=== PATIENT | female | born 1990 | race Two or more races ===

== ENCOUNTER 2023-12-16 18:35 | Emergency (ER) | payer OTHER ==
[~2023-12-16] VITALS: Ht 162.6 cm; Wt 89.8 kg
[2023-12-16 18:58] VITALS: PULSE 108; RESP 24; TEMP 98.1; O2SAT 98
--- NOTE | 2023-12-16 19:16 | DVH ---
RIGHT UPPER QUADRANT ABDOMINAL ULTRASOUND CLINICAL HISTORY: ruq pain COMPARISON: None TECHNIQUE: Grayscale and color Doppler ultrasound imaging of the right upper quadrant is performed. FINDINGS: Pancreas: Obscured by artifact from bowel gas. Liver: No discrete hepatic lesions as visualized. The portal vein appears patent. Gallbladder: No sizable, shadowing cholelithiasis. No sonographic conklin's sign reported. No gallblad george wall thickening. Common bile duct: Nondilated. Right Kidney: Measures 8.4 cm in length. No hydronephrosis. Right upper quadrant Inferior vena cava: Visualized portions appear patent. IMPRESSION: No acute findings as visualized.
[2023-12-16 19:39] LABS: Urine Bacteria None Seen /hpf (None Seen)
[2023-12-16 19:45] LABS: Basophils # (auto) 0 10 ^3/uL (0-0.2); Basophils % (auto) 0.4 % (0.0-2.0); Eosinophils # (auto) 0 10 ^3/uL (0-0.8); Eosinophils % (auto) 0.7 % (0.0-7.0); Hematocrit 38.5 % (36.0-46.0); Hemoglobin 12.9 g/dL (12.2-16.2); Lymphocytes # (auto) 1.8 10 ^3/uL (0.4-5.4); Mean Corpuscular Hemoglobin 28.8 pg (28.0-32.0); Mean Corpuscular Hgb Conc. 33.5 g/dL (32.0-36.0); Mean Corpuscular Volume 85.9 fL (80.0-100.0); Monocytes # (auto) 0.6 10 ^3/uL (0-1.3); Monocytes % (auto) 8.5 % (0.0-12.0); Neutrophils % (auto) 62.4 % (37.0-80.0); Platelet Count (auto) 203 10^3/uL (140-450); Red Blood Cells 4.48 10^6/uL (4.0-5.20); Red Cell Distribution Width 14.4 % (11.8-14.3); White Blood Cell 6.5 10^3/uL (4.4-10.8)
[2023-12-16 19:53] LABS: Alanine Aminotransferase 12 U/L (7-40); Albumin 4.1 g/dL (3.2-4.8); Alkaline Phosphatase 84 U/L (46-116); Anion Gap 7 (5-15); Aspartate Aminotransferase 16 U/L (13-40); BUN/Creatinine Ratio 9.5 (10.0-20.0); Blood Urea Nitrogen 6 mg/dL (9-23); Calcium 8.9 mg/dL (8.7-10.4); Carbon Dioxide 22 mmol/L (20-31); Chloride 109 mmol/L (98-107); Glucose 105 mg/dL (74-106); Lipase 31 U/L (12-53); Potassium 3.5 mmol/L (3.5-5.1); Sodium 138 mmol/L (136-145)
[2023-12-16 19:54] LABS: Bilirubin, Total 0.2 mg/dL (0.2-1.0); Total Protein 6.7 g/dL (5.7-8.2)
[2023-12-16 20:05] LABS: Urine Blood 1+ /uL (Negative); Urine Clarity Clear (Clear); Urine Color Light-Yellow (Yellow); Urine Mucus FEW (None Seen); Urine Protein, UAD Negative (Negative); Urine Specific Gravity 1.019 (1.001-1.035); Urine Urobilinogen Normal (Negative); Urine WBC 1 /hpf (0 - 5); Urine pH 5.5 (5.0-9.0)
--- NOTE | 2023-12-16 20:08 | ED.PDOC ---
History of Present Illness HPI Comments 33 y/o F, with a Hx of , in remission leukemia, seizures, obesity, and former EtOH use, presents with c/o RUQ abdominal and right-upper back pain, nausea, vomiting, diarrhea, and chills for 4 days. Patient endorses on unprovoked onset of gradually worsening symptoms for the past 4 days, with associated negative p/o intake. Patient comments on pain being a 10/10, "sharp and stabbing" in quality, and originating in her RUQ area prior to then "wrapping around" towards her back. Patient reports no recent stress, injuries, sick contact, spoiled food intake, substance use/exposure, or sexual activity but admits to recent travel, while visiting her mother from [place]town, currently. Patient informs on not being , currently, and her LMP on 11/13/2023. Patient denies having any constipation, hematemesis, blood in stools, urinary symptoms, fever, or other associated symptoms or modifiers at this time. Chief Complaint: Abdominal Pain Time Seen by MD: 18:40 Primary Care Provider: NONE Reviewed Notes: Nurses Notes, Medications, Allergies Allergies: Coded Allergies: Acetaminophen (Verified Allergy, Unknown, 12/16/23) Ibuprofen (Verified Allergy, Unknown, 12/16/23) Uncoded Allergies: TORODOL (Allergy, Unknown, 12/16/23) Information Source: Patient Mode of Arrival: Ambulatory Severity: Moderate Timing: Days Duration: Since onset Prehospital treatment: None Past Medical History PAST MEDICAL HISTORY: Cancer (leukemia, in remission ), Seizures Past Medical History (Other): obesity Surgical History: Denies all surgeries RAW JUICE WEIGHER History: Denies all RAW JUICE WEIGHER Hx LMP 11/13/2023 Family History Family History: Unknown Social History Smoker: Non-Smoker Alcohol: Denies ETOH Use, Sober Drugs: Denies Drug Use Lives In: Home Constitutional: reports: chills; denies: diaphoresis, fatigue, fever, malaise, sweats, weakness, others EENTM: denies: blurred vision, double vision, ear bleeding, ear discharge, ear drainage, ear pain, ear ringing, eye pain, eye redness, hearing loss, mouth pain, mouth swelling, nasal discharge, nose bleeding, nose congestion, nose pain, photophobia, tearing, throat pain, throat swelling, voice changes, others Respiratory: denies: cough, hemoptysis, orthopnea, SOB at rest, shortness of breath, SOB with excertion, stridor, wheezing, others Cardiovascular: denies: chest pain, dizzy spells, diaphoresis, Dyspnea on exe rtion, edema, irregular heart beat, left arm pain, lightheadedness, palpitations, PND, syncope, others Gastrointestinal: reports: abdominal pain (RUQ ), diarrhea, nausea, vomiting; denies: abdomen distended, blood streaked bowels, constipated, dysphagia, difficulty swallowing, hematemesis, melena, poor appetite, poor fluid intake, rectal bleeding, rectal pain, others Genitourinary: denies: abnormal vagina bleeding, burning, dyspareunia, dysuria, flank pain, frequency, hematuria, incontinence, pain, , vagina discharge, urgency, others Neurological: denies: dizziness, fainting, headache, left sided numbness, left sided weakness, numbness, paresthesia, pre-existing deficit, right sided numbness, right sided weakness, seizure, speech problems, tingling, tremors, weakness, others Musculoskeletal: reports: back pain; denies: gout, joint pain, joint swelling, muscle pain, muscle stiffness, neck pain, others Integumetry: denies: bruises, change in color, change in hair/nails, dryness, laceration, lesions, lumps, rash, wounds, others Allergic/Immunocompromised: denies: Difficulty Healing, Frequent Infections, Hives, Itching, others Hematologic/Lymphatic: denies: anemia, blood clots, easy bleeding, easy bruising, swollen glands, others Endocrine: denies: excessive hunger, excessive sweating, excessive thirst, excessive urination, flushing, intolerance to cold, intolerance to heat, unexplained weight gain, unexplained weight loss, others Psychiatric: denies: anxiety, bipolar disorder, depression, hopeless, panic disorder, schizophrenia, sleepless, suicidal, others All Other Systems: Reviewed and Negative Physical Exam General Appearance: No Apparent Distress, Obese HEENT: Normal ENT Inspection, Pharynx Normal, TMs Normal Neck: Full Range of Motion, Non-Tender, Normal, Normal Inspection Respiratory: Chest Non-Tender, Lungs Clear, No Accessory Muscle Use, No Respiratory Distress, Normal Breath Sounds Cardiovascular: No Edema, No JVD, No Murmur, No Gallop, Normal Peripheral Pulses, Regular Rate/Rhythm Breast Exam: Deferred Gastrointestinal: No Organomegaly, No Pulsatile Mass, Normal Bowel Sounds, RUQ (tenderness ), Soft, Tenderness (RUQ) Genitalia: Deferred Pelvic: Deferred Rectal: Deferred Extremities: No calf tenderness, Normal capillary refill, Normal inspection, Normal range of motion, Non-tender, No pedal edema Musculoskeletal : Apperance: Normal Neurologic: Alert, band manager II-XII nml as Tested, No Motor Deficits, Normal Affect, Normal Mood, No Sensory Deficits Cerebellar Function: Normal Reflexes: Normal Skin: Dry, Normal Color, Warm Lymphatic: No Adenopathy Was a procedure done? Was a procedure done?: No Differential Dx Considerations may include: Gastritis, gastroenteritis, GERD, PUD, cholecystitis, cholelithiasis, cystitis, nephrolithiasis, viral syndrome, spoiled food, , acute abdomen X-Ray, Labs, Meds, VS Vital Signs Date Time Temp Pulse Resp B/P (MAP) Pulse Ox O2 Delivery O2 Flow Rate FiO2 12/16/23 20:38 122 20 133/86 (102) 96 12/16/23 20:30 99 16 150/80 12/16/23 18:58 108 24 98 Room Air* 0 21 12/16/23 18:58 98.1 108 24 150/81 (104) 98 98.1 12/16/23 18:40 98.1 108 24 150/81 (104) 98 Lab Test 12/16/23 19:38 12/16/23 19:11 Range/Units Urine Color Light-yellow Yellow Urine Clarity Clear Clear Urine pH 5.5 5.0-9.0 Urine Specific [place] 1.019 1.001-1.035 Urine Protein Negative Negative Urine Ketones Negative Negative Urine Blood 1+ H Negative /uL Urine Nitrite Negative Negative Urine Bilirubin Negative Negative Urine Urobilinogen Normal Negative mg/dL Urine Leukocyte Esterase Negative Negative /uL Urine RBC 4 0 - 4 /hpf Urine WBC 1 0 - 5 /hpf Urine Squamous Epithelial Cells Few <5 /hpf Urine Bacteria None seen None Seen /hpf Urine Mucus Few None Seen Urine Glucose Normal Normal mg/dL Urine Test Negative Negative White Blood Count 6.5 4.4-10.8 10^3/uL Red Blood Count 4.48 4.0-5.20 10^6/uL Hemoglobin 12.9 12.2-16.2 g/dL Hematocrit 38.5 36.0-46.0 % Mean Corpuscular Volume 85.9 80.0-100.0 fL Mean Corpuscular Hemoglobin 28.8 28.0-32.0 pg Mean Corpuscular Hemoglobin Concent 33.5 32.0-36.0 g/dL Red Cell Distribution Width 14.4 H 11.8-14.3 % Platelet Count 203 140-450 10^3/uL Mean Platelet Volume 8.8 6.9-10.8 fL Neutrophils (%) (Auto) 62.4 37.0-80.0 % Lymphocytes (%) (Auto) 28.0 10.0-50.0 % Monocytes (%) (Auto) 8.5 0.0-12.0 % Eosinophils (%) (Auto) 0.7 0.0-7.0 % Basophils (%) (Auto) 0.4 0.0-2.0 % Neutrophils # (Auto) 4.0 1.6-8.6 10 ^3/uL Lymphocytes # (Auto) 1.8 0.4-5.4 10 ^3/uL Monocytes # (Auto) 0.6 0-1.3 10 ^3/uL Eosinophils # (Auto) 0 0-0.8 10 ^3/uL Basophils # (Auto) 0 0-0.2 10 ^3/uL Nucleated Red Blood Cells 0.0 % Sodium Level 138 136-145 mmol/L Potassium Level 3.5 3.5-5.1 mmol/L Chloride Level 109 H 98-107 mmol/L Carbon Dioxide Level 22 20-31 mmol/L Anion Gap 7 5-15 Blood Urea Nitrogen 6 L 9-23 mg/dL Creatinine 0.63 0.550-1.02 mg/dL Glomerular Filtration Rate Calc 121 >90 mL/min BUN/Creatinine Ratio 9.5 L 10.0-20.0 Serum Glucose 105 74-106 mg/dL Calcium Level 8.9 8.7-10.4 mg/dL Total Bilirubin 0.2 0.2-1.0 mg/dL Aspartate Amino Transferase (AST) 16 13-40 U/L Alanine Aminotransferase (ALT) 12 7-40 U/L Alkaline Phosphatase 84 46-116 U/L Total Protein 6.7 5.7-8.2 g/dL Albumin 4.1 3.2-4.8 g/dL Lipase 31 12-53 U/L Current Medications Medications (Trade) Dose Ordered Sig/Mary Carmen Route Start Time Stop Time Status Last Admin Sodium Chloride 1,000 ml @ 1,000 mls/hr Q1H ONCE IV 12/16/23 18:45 12/16/23 19:44 DC 12/16/23 20:22 Ondansetron HCl (Zofran) 4 mg ONCE ONCE IV 12/16/23 18:45 12/16/23 18:46 DC 12/16/23 20:35 Morphine Sulfate 4 mg ONCE ONCE IV 12/16/23 18:45 12/16/23 18:46 DC 12/16/23 20:30 Diphenhydramine HCl (Benadryl Injection) 25 mg ONCE ONCE IV 12/16/23 20:45 12/16/23 20:46 DC 12/16/23 20:40 [place] [address] Ph: [phone] DIAGNOSTIC IMAGING Diagnostic Imaging Report : [id number] Signed PATIENT: TERE DE LUNA ACCT: [id number] UNIT: [id number] : 1990 LOC: ER ROOM / BED: / AGE / SEX: 33 / F ADM STATUS: REG ER SERVICE 45 ORDERING PHYSICIAN: KATHY MARTINEZ MD PROCEDURE(s): GBUS - GALLBLADDER REASON: ruq pain ORDER NUMBER(s): [id number], ACCESSION NUMBER(s): [id number] RIGHT UPPER QUADRANT ABDOMINAL ULTRASOUND CLINICAL HISTORY: ruq pain COMPARISON: None TECHNIQUE: Grayscale and color Doppler ultrasound imaging of the right upper quadrant is performed. FINDINGS: Pancreas: Obscured by artifact from bowel gas. Liver: No discrete hepatic lesions as visualized. The portal vein appears paten t. Gallbladder: No sizable, shadowing cholelithiasis. No sonographic conklin's sign reported. No gallbladder wall thickening. Common bile duct: Nondilated. Right Kidney: Measures 8.4 cm in length. No hydronephrosis. Right upper quadrant Inferior vena cava: Visualized portions appear patent. IMPRESSION: No acute findings as visualized. ATED BY: RANDY NORTH MD DICTATED DATE/TIME: 12/16/231913 SIGNED BY: RANDY NORTH MD SIGNED DATE/TIME: 12/16/231913 CC: Time of 1ST Reevaluation: 19:10 Reevaluation 1ST: Unchanged Patient Education/Counseling: Diagnosis, Treatment Family Education/Counseling: No Family Present Departure 1 Departure Time of Disposition: 21:01 (Patient presented with abdominal pain that was concerning for possible appendicits, gastritis, cholecystitis, colitis, gastroenteritis, or orther possible surgical emergency. Data: 1. I ordered and reviewed the result of at least 3 labs including a CBC, BMP, and Urinalysis. 2. I independently interpreted the following tests: Ultrasound of the gallbladder is benign.Risk:This patient has a high risk of morbidity due to further diagnostic testing or treatment and may suffer from an acute abdominal process disorder. Fortunately workup reveals likely gastroenteritis and patient can be safely discharged to home with outpatient follow up.Patient is now pain free.) Impression: Primary Impression: Flank pain Additional Impression: Hematuria Qualified Codes: R31.29 - Other microscopic hematuria Disposition: 01 HOME / SELF CARE / HOMELESS Condition: Stable Additional Instructions: Your workup today was benign other than a drop of blood in your urine. You may have had a kidney stone that you passed. You should follow up with your regular doctor within 1 week. You should stay well rested and well hydrated. If your symptoms worsen or you have any other concerns please return to the emergency room. Critical Care Note Critical Care Time?: Yes Critical care comment: Severe abdominal pain Authorized and Performed by: Kathy Martinez MD Total critical care time: Approximately 33 minutes Due to a high probability of clinically significant, life threatening deterioration, the patient required my highest level of preparedness to intervene emergently and I personally spent this critical care time directly and personally managing the patient. This critical care time included obtaining a history; examining the patient; pulse oximetry; ordering and review of studies; arranging urgent treatment with development of a management plan; evaluation of patient's response to treatment; frequent reassessment; and, discussions with other providers. This critical care time was performed to assess and manage the high probability of imminent, life-threatening deterioration that could result in multi-organ failure. It was exclusive of separately billable procedures and treating other patients and teaching time. Please see my other sections and the rest of the note for further information on patient assessment and treatment. Stability Stability form required: No Heart Score Heart Score: Heart Score Response (Comments) Value History N/A 0 EKG N/A 0 Age N/A 0 Risk Factors N/A 0 Troponin N/A 0 Total 0 I personally scribed for KATHY MARTINEZ MD ([email or web address]) on 12/16/23 at 20:08. Electronically submitted by Alexey Cotter ([email or web address]). KATHY MARTINEZ MD Dec 16, 2023 20:08
[2023-12-16] MEDS: SODIUM CHLORIDE 0.9% 1,000 ML IV ONE (20:22)
[2023-12-16] MEDS: MORPHINE SULFATE 4 MG/ML SYR/VIAL IV ONE (20:30)
[2023-12-16] MEDS: diphenhdrAMINE HCL 50 MG/1 ML VL ONE (20:35)
[2023-12-16] MEDS: ONDANSETRON HCL 4 MG/2 ML VIAL IV ONE (20:35)
[2023-12-16 20:38] VITALS: BP 133/86; PULSE 122; RESP 20; O2SAT 96
[2023-12-16] MEDS: diphenhdrAMINE HCL 50 MG/1 ML VL IV ONE (20:40)
== END 2023-12-16 21:17 | disposition home or self-care (01) ==
LOC: ER 18:43
DX: R10.9 Unspecified abdominal pain (principal); R31.9 Hematuria, unspecified; E66.9 Obesity, unspecified; Z68.34 Body mass index [BMI] 34.0-34.9, adult; Z85.9 Personal history of malignant neoplasm, unspecified; Z88.6 Allergy status to analgesic agent
CPT/HCPCS: 36415; 76705; 80053; 81001; 81025; 83690; 85025; 96361; 96374; 96375; 99285; J1200; J2270; J2405; J7030

== ENCOUNTER 2024-06-01 19:55 | Inpatient (IN) | payer OTHER, MEDICAID ==
[~2024-06-01] VITALS: Ht 162.6 cm; Wt 93.1 kg
--- NOTE | 2024-06-01 20:19 | ED.PDOC ---
GI ASSESSMENT HPI Comments 33-year-old female who comes in with chief complaint of the right upper quadrant pain. The patient states that the symptoms started two days ago. The pain is associated with a significant amount of vomiting that increases with eating. The patient has a history of seizures and states that she has not been able of her medications over the past couple of days either. She typically takes Keppra 500 mg p.o. b.i.d.. At that time she states that the pain is a 10/10 and also radiates towards the back. She denies any history of this in the past. Chief Complaint: Abdominal Pain Time Seen by MD: 20:00 Primary Care Provider: NONE Reviewed Notes: Nurses Notes, Medications, Allergies (See list) Allergies: Coded Allergies: Acetaminophen (Verified Allergy, Unknown, 12/16/23) Ibuprofen (Verified Allergy, Unknown, 12/16/23) Uncoded Allergies: TORODOL (Allergy, Unknown, 12/16/23) Information Source: Patient Mode of Arrival: Ambulatory Timing: Days Duration: Since onset Prehospital treatment: None Quality: Burning Vomitus: Bilious Stool: Normal Severity: Moderate Recent: None Recent Hx of: None Pain Location: RUQ Modifying Factors: Nothing Associated sign and symptoms: Nausea, Vomiting, Abdominal Pain Past Medical History PAST MEDICAL HISTORY: Cancer (Leukemia), Seizures Surgical History: Denies all surgeries IT APPLICATIONS ANALYST History: Denies all IT APPLICATIONS ANALYST Hx Family History Family History: Unknown Social History Smoker: Non-Smoker Alcohol: Denies ETOH Use, Sober Drugs: Denies Drug Use Lives In: Home Constitutional: denies: chills, diaphoresis, fatigue, fever, malaise, sweats, weakness, others EENTM: denies: blurred vision, double vision, ear bleeding, ear discharge, ear drainage, ear pain, ear ringing, eye pain, eye redness, hearing loss, mouth pain, mouth swelling, nasal discharge, nose bleeding, nose congestion, nose pain, photophobia, tearing, throat pain, throat swelling, voice changes, others Respiratory: denies: cough, hemoptysis, orthopnea, SOB at rest, shortness of breath, SOB with excertion, stridor, wheezing, others Cardiovascular: denies: chest pain, dizzy spells, diaphoresis, Dyspnea on exertion, edema, irregular heart beat, left arm pain, lightheadedness, palpitations, PND, syncope, others Gastrointestinal: reports: abdominal pain, diarrhea, nausea, vomiting; denies: abdomen distended, blood streaked bowels, constipated, dysphagia, difficulty swallowing, hematemesis, melena, poor appetite, poor fluid intake, rectal bleeding, rectal pain, others Genitourinary: denies: abnormal vagina bleeding, burning, dyspareunia, dysuria, flank pain, frequency, hematuria, incontinence, pain, , vagina discharge, urgency, others Neurological: denies: dizziness, fainting, headache, left sided numbness, left sided weakness, numbness, paresthesia, pre-existing deficit, right sided numbness, right sided weakness, seizure, speech problems, tingling, tremors, weakness, others Musculoskeletal: denies: back pain, gout, joint pain, joint swelling, muscle pain, muscle stiffness, neck pain, others Integumetry: denies: bruises, change in color, change in hair/nails, dryness, laceration, lesions, lumps, rash, wounds, others Allergic/Immunocompromised: denies: Difficulty Healing, Frequent Infections, Hives, Itching, others Hematologic/Lymphatic: denies: anemia, blood clots, easy bleeding, easy bruisi ng, swollen glands, others Endocrine: denies: excessive hunger, excessive sweating, excessive thirst, exce ssive urination, flushing, intolerance to cold, intolerance to heat, unexplained weight gain, unexplained weight loss, others Psychiatric: denies: anxiety, bipolar disorder, depression, hopeless, panic disorder, schizophrenia, sleepless, suicidal, others Physical Exam General Appearance: Moderate Distress HEENT: Normal ENT Inspection, Pharynx Normal, TMs Normal Neck: Full Range of Motion, Non-Tender, Normal, Normal Inspection Respiratory: Chest Non-Tender, Lungs Clear, No Accessory Muscle Use, No Respiratory Distress, Normal Breath Sounds Cardiovascular: No Edema, No JVD, No Murmur, No Gallop, Normal Peripheral Pulse s, Regular Rate/Rhythm Breast Exam: Deferred Gastrointestinal: Epigastric, No Organomegaly, No Pulsatile Mass, Normal Bowel Sounds, Soft, Tenderness Genitalia: Deferred Pelvic: Deferred Rectal: Deferred Extremities: No calf tenderness, Normal capillary refill, Normal inspection, Normal range of motion, Non-tender, No pedal edema Musculoskeletal : Apperance: Normal Neurologic: Alert, 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 Was a procedure done?: No GI differential Dx Differential Diagnosis: Appendicitis, Cholangitis, Cholecystitis, Gastritis/PUD, Gastroenteritis, Inflammatory BD, Ischemic Bowel X-Ray, Labs, Meds, VS Vital Signs Date Time Temp Pulse Resp B/P (MAP) Pulse Ox O2 Delivery O2 Flow Rate FiO2 06/01/24 21:34 79 19 108/87 06/01/24 21:26 98.6 98 18 108/64 (79) 98 98.6 06/01/24 20:09 97.9 85 18 106/80 (89) 98 97.9 Lab Test 06/01/24 20:30 Range/Units White Blood Count 7.3 4.4-10.8 10^3/uL Red Blood Count 4.81 4.0-5.20 10^6/uL Hemoglobin 13.5 12.2-16.2 g/dL Hematocrit 39.9 36.0-46.0 % Mean Corpuscular Volume 83.1 80.0-100.0 fL Mean Corpuscular Hemoglobin 28.0 28.0-32.0 pg Mean Corpuscular Hemoglobin Concent 33.8 32.0-36.0 g/dL Red Cell Distribution Width 14.2 11.8-14.3 % Platelet Count 221 140-450 10^3/uL Mean Platelet Volume 8.4 6.9-10.8 fL Neutrophils (%) (Auto) 64.2 37.0-80.0 % Lymphocytes (%) (Auto) 26.7 10.0-50.0 % Monocytes (%) (Auto) 7.9 0.0-12.0 % Eosinophils (%) (Auto) 0.9 0.0-7.0 % Basophils (%) (Auto) 0.3 0.0-2.0 % Neutrophils # (Auto) 4.7 1.6-8.6 10 ^3/uL Lymphocytes # (Auto) 2.0 0.4-5.4 10 ^3/uL Monocytes # (Auto) 0.6 0-1.3 10 ^3/uL Eosinophils # (Auto) 0.1 0-0.8 10 ^3/uL Basophils # (Auto) 0 0-0.2 10 ^3/uL Nucleated Red Blood Cells 0.1 % Sodium Level 138 136-145 mmol/L Potassium Level 3.8 3.5-5.1 mmol/L Chloride Level 106 98-107 mmol/L Carbon Dioxide Level 24 20-31 mmol/L Anion Gap 8 5-15 Blood Urea Nitrogen 6 L 9-23 mg/dL Creatinine 0.67 0.550-1.02 mg/dL Glomerular Filtration Rate Calc 119 >90 mL/min BUN/Creatinine Ratio 9.0 L 10.0-20.0 Serum Glucose 87 74-106 mg/dL Calcium Level 9.5 8.7-10.4 mg/dL Total Bilirubin 0.2 0.2-1.0 mg/dL Aspartate Amino Transferase (AST) 12 L 13-40 U/L Alanine Aminotransferase (ALT) < 9 7-40 U/L Alkaline Phosphatase 97 46-116 U/L Total Protein 7.3 5.7-8.2 g/dL Albumin 4.3 3.2-4.8 g/dL Lipase 33 12-53 U/L Current Medications Medications (Trade) Dose Ordered Sig/Mary Carmen Route Start Time Stop Time Status Last Admin Sodium Chloride 1,000 ml @ 1,000 mls/hr Q1H ONCE IVB 06/01/24 20:15 06/01/24 21:14 DC 06/01/24 21:35 Morphine Sulfate 4 mg ONCE ONCE IV 06/01/24 20:15 06/01/24 20:16 DC 06/01/24 21:34 Pantoprazole Sodium (Protonix) 40 mg ONCE ONCE IV 06/01/24 20:15 06/01/24 20:16 DC 06/01/24 21:35 Prochlorperazine Edisylate (Compazine Inj) 10 mg ONCE ONCE IV 06/01/24 20:15 06/01/24 20:16 DC 06/01/24 21:35 Levetiracetam 100 ml @ 400 mls/hr ONCE ONCE IV 06/01/24 20:15 06/01/24 20:29 DC 06/01/24 21:35 IV Hep-Lock was established The patient was given 1 L bolus of normal saline The patient was given morphine 4 mg IV push for the pain The patient was given Protonix 40 mg IV push The patient was given Compazine 10 mg IV push for the vomiting For the seizures, the patient was given Keppra to prevent any other seizures from happening. The patient's CBC and chemistry panel is within normal limits At this time, we are awaiting Hope's call back We feel that the patient is to be admitted to the hospital but is stable for transfer. The patient will be signed out to Dr. Lofton Images Reviewed?: Images reviewed and evaluated by me Time of 1ST Reevaluation: 21:42 Reevaluation 1ST: Unchanged Patient Education/Counseling: Diagnosis, Treatment, Prognosis Family Education/Counseling: No Family Present Departure 1 Departure Time of Disposition: 21:42 Impression: Primary Impression: Intractable abdominal pain Disposition: 51 HOSPICE/MEDICAL FACILITY Condition: Fair Critical Care Note Critical Care Time?: No Stability Stability form required: Yes Unstable for transfer: ED Physician Assesment (Clinical assesment) Heart Score Heart Score: Heart Score Response (Comments) Value History N/A 0 EKG N/A 0 Age N/A 0 Risk Factors N/A 0 Troponin N/A 0 Total 0 ALMAZ ALARCON MD Jun 01, 2024 20:19
[2024-06-01 20:47] LABS: Basophils # (auto) 0 10 ^3/uL (0-0.2); Basophils % (auto) 0.3 % (0.0-2.0); Eosinophils # (auto) 0.1 10 ^3/uL (0-0.8); Eosinophils % (auto) 0.9 % (0.0-7.0); Hematocrit 39.9 % (36.0-46.0); Hemoglobin 13.5 g/dL (12.2-16.2); Lymphocytes % (auto) 26.7 % (10.0-50.0); Mean Corpuscular Hgb Conc. 33.8 g/dL (32.0-36.0); Mean Corpuscular Volume 83.1 fL (80.0-100.0); Monocytes # (auto) 0.6 10 ^3/uL (0-1.3); Monocytes % (auto) 7.9 % (0.0-12.0); Neutrophils # (auto) 4.7 10 ^3/uL (1.6-8.6); Neutrophils % (auto) 64.2 % (37.0-80.0); Nucleated Red Blood Cells % 0.1 %; Platelet Count (auto) 221 10^3/uL (140-450); Red Blood Cells 4.81 10^6/uL (4.0-5.20); Red Cell Distribution Width 14.2 % (11.8-14.3); White Blood Cell 7.3 10^3/uL (4.4-10.8)
[2024-06-01 21:08] LABS: Albumin 4.3 g/dL (3.2-4.8); Alkaline Phosphatase 97 U/L (46-116); Anion Gap 8 (5-15); Calcium 9.5 mg/dL (8.7-10.4); Carbon Dioxide 24 mmol/L (20-31); Chloride 106 mmol/L (98-107); Glucose 87 mg/dL (74-106); Lipase 33 U/L (12-53); Potassium 3.8 mmol/L (3.5-5.1); Sodium 138 mmol/L (136-145); Total Protein 7.3 g/dL (5.7-8.2)
[2024-06-01 21:20] LABS: Alanine Aminotransferase < 9 U/L (7-40); Aspartate Aminotransferase 12 U/L (13-40); Bilirubin, Total 0.2 mg/dL (0.2-1.0); Blood Urea Nitrogen 6 mg/dL (9-23)
--- NOTE | 2024-06-01 21:21 | DVH ---
INDICATION: pain TECHNIQUE: Multiple real-time sonographic images were obtained of the right upper quadrant. COMPARISON: US GALLBLADDER on DOS: 12/16/23 FINDINGS: The liver demonstrates homogeneous echotexture without focal mass lesions. The liver measu res 12.7 cm. There is no intrahepatic or extrahepatic ductal dilatation. The common duct measures 0.3 cm. The gallbladder is without evidence of stone or sludge. The gallbladder wall measures 0.2 cm and is within normal limits. The right kidney measures 10 cm. The right kidney is normal in contour, size, and shape. The echoge nicity is normal. There is no hydronephrosis. The pancreas is not well visualized due to overlying bowel gas. IMPRESSION: 1. Unremarkable right upper quadrant sonogram.
[2024-06-01] MEDS: MORPHINE SULFATE 4 MG/ML SYR/VIAL IV ONE (21:34)
[2024-06-01] MEDS: levETIRAcetam 1000 mg/100ml 100 ML IV ONE (21:35)
[2024-06-01] MEDS: SODIUM CHLORIDE 0.9% 1,000 ML IVB ONE (21:35)
[2024-06-01] MEDS: PROCHLORPERAZINE EDISYLATE 5 MG/ML 2ML VIAL IV ONE (21:35)
[2024-06-01] MEDS: PANTOPRAZOLE 40 MG/10 ML VIAL INJ IV ONE (21:35)
[2024-06-01] MEDS: diphenhdrAMINE HCL 50 MG/1 ML VL IV ONE (21:47)
[2024-06-01 22:07] VITALS: PULSE 108; RESP 17; O2SAT 98
[2024-06-01] MEDS: LORazepam 2MG/ML-1ML VIAL ONE (22:10)
[2024-06-01] MEDS: LORazepam 2MG/ML-1ML VIAL IV ONE (22:10)
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
[2024-06-01] MEDS ORDERED: LORazepam 0.5 MG TAB PO PRN (23:15)
[2024-06-01] MEDS ORDERED: ACETAMINOPHEN 325 MG TAB PO PRN (23:15)
[2024-06-01 23:49] LABS: INR 0.99 (0.9-1.15); Partial Thromboplastin Time 24.5 SEC (24.5-34.5); Prothrombin Time 10.5 sec (9.3-11.8)
[2024-06-02 00:03] LABS: Magnesium 1.8 mg/dL (1.6-2.6)
[2024-06-02 00:04] LABS: Phosphorus 2.8 mg/dL (2.4-5.1)
[2024-06-02] MEDS: ERGOCALCIFEROL 50,000 UNIT(1.25MG) CAP PO SCH (01:31)
[2024-06-02] MEDS: MORPHINE SULFATE INJ 2 MG/ml SYRG IV PRN (01:31)
[2024-06-02] MEDS: QUEtiapine FUMARATE 100 MG TAB PO ONE (02:13)
[2024-06-02] MEDS: SODIUM CHLORIDE 0.9% 1,000 ML IV ONE (02:13)
[2024-06-02] MEDS: HYDROMORPHONE HCL 1 MG/ML INJ IV ONE (02:13)
[2024-06-02] MEDS: diphenhdrAMINE HCL 50 MG/1 ML VL IV ONE (02:13)
[2024-06-02] MEDS: SODIUM CHLORIDE 0.9% 1,000 ML IV SCH (02:49)
[2024-06-02] MEDS: cefTRIAXone 1GM/50ML D5W 50 ML IV ONE (05:03)
[2024-06-02] MEDS: metroNIDAZOLE 500MG/100ML 100 ML IV ONE (05:04)
[2024-06-02] MEDS: metroNIDAZOLE 500MG/100ML 100 ML IV SCH (05:04)
[2024-06-02 06:10] LABS: Basophils # (auto) 0 10 ^3/uL (0-0.2); Basophils % (auto) 0.3 % (0.0-2.0); Eosinophils # (auto) 0.1 10 ^3/uL (0-0.8); Hematocrit 35.8 % (36.0-46.0); Hemoglobin 12.1 g/dL (12.2-16.2); Lymphocytes % (auto) 36.7 % (10.0-50.0); Mean Corpuscular Hemoglobin 28.1 pg (28.0-32.0); Mean Corpuscular Hgb Conc. 33.7 g/dL (32.0-36.0); Mean Corpuscular Volume 83.1 fL (80.0-100.0); Monocytes # (auto) 0.4 10 ^3/uL (0-1.3); Monocytes % (auto) 7.8 % (0.0-12.0); Neutrophils # (auto) 2.9 10 ^3/uL (1.6-8.6); Neutrophils % (auto) 54.2 % (37.0-80.0); Nucleated Red Blood Cells % 0.4 %; Platelet Count (auto) 185 10^3/uL (140-450); Red Blood Cells 4.31 10^6/uL (4.0-5.20); Red Cell Distribution Width 14.1 % (11.8-14.3); White Blood Cell 5.4 10^3/uL (4.4-10.8)
[2024-06-02 06:20] LABS: Anion Gap 8 (5-15); Carbon Dioxide 23 mmol/L (20-31); Sodium 140 mmol/L (136-145)
[2024-06-02 06:26] LABS: BUN/Creatinine Ratio 10.9 (10.0-20.0)
[2024-06-02 06:27] LABS: Blood Urea Nitrogen 6 mg/dL (9-23); Calcium 8.2 mg/dL (8.7-10.4); Chloride 109 mmol/L (98-107); Glucose 106 mg/dL (74-106); Potassium 3.4 mmol/L (3.5-5.1)
[2024-06-02 06:29] LABS: T3 Total 1.16 ng/mL (0.60-1.81)
[2024-06-02 06:30] LABS: Free T4 (Free Thyroxine) 1.14 ng/dL (0.89-1.76)
[2024-06-02] MEDS: ONDANSETRON HCL 4 MG/2 ML VIAL IV PRN (08:23)
--- NOTE | 2024-06-02 08:29 | DVH ---
Exam: CT CT AB PEL WO CON-NO ORAL OR IV History: Abdominal apin Comparison Study: None Technique: Multidetector spiral CT of the abdomen was performed from lung bases to pubic symphysis. I maging was performed without IV contrast. Axial, coronal and sagittal multiplanar reformats were obta ined from the axial data set by the technologist. Radiation Dose : 1. Abdomen/Pelvis: CTDIvol 17.63 mGy, DLP 1016.34 mGy*cm. Findings: Evaluation of solid organs is limited due to lack of intravenous contrast use. Lung Bases: No acute or significant lung base finding. Normal heart size. No pleural or pericardial effusion. Liver: The liver is normal in size. No focal lesions. Gallbladder and Biliary Tree: Unremarkable Spleen: Unremarkable Pancreas: The pancreas is grossly normal in appearance. Adrenal Glands: Unremarkable Kidneys: Kidneys are grossly normal without calculi or hydronephrosis. Bladder: Grossly unremarkable for degree of distention. Bowel: The stomach is grossly normal in appearance. Moderate bowel wall thickening of the terminal il eum. Moderate colonic stool. The appendix is not visualized; however, no secondary findings of acute appendicitis identified. Ascites: Absent Lymphadenopathy: No mesenteric, retroperitoneal or periportal lymphadenopathy. Abdominal Wall and Mesentery: Unremarkable. Vasculature: The visualized abdominal aorta is normal in size and caliber. Evaluation of abdominal a nd pelvic vessels is limited due to lack of intravenous contrast. Pelvic Organs: Left adnexal cyst measures 2.1 cm. Musculoskeletal: No aggressive focal bony lesions, acute fractures or dislocation. IMPRESSION: Moderate bowel wall thickening of the terminal ileum. This may represent infectious or inflammatory b owel disease.
[2024-06-02] MEDS: cefTRIAXone 1GM/50ML D5W 50 ML IV SCH (09:23)
[2024-06-02] MEDS: SERTRALINE HCL 50 MG TAB PO SCH (10:23)
[2024-06-02] MEDS: levETIRAcetam 500 MG TAB PO SCH (10:23)
[2024-06-02] MEDS: ENOXAPARIN SOD 40 MG/0.4 ML SYRINGE SC SCH (10:23)
[2024-06-02 12:00] LABS: Urine Bacteria FEW /hpf (None Seen); Urine Blood Negative /uL (Negative); Urine Clarity Turbid (Clear); Urine Color Colorless (Yellow); Urine Mucus FEW (None Seen); Urine Protein, UAD Negative (Negative); Urine Squamous Epithelial Cell MOD /hpf (<5); Urine Urobilinogen Normal (Negative); Urine WBC 3 /HPF (0-5)
[2024-06-02 12:06] LABS: Opiate Scree,Urine Pos (NEGATIVE)
[2024-06-02 12:07] LABS: Amphetamine Screen, Urine Neg (NEGATIVE); Barbiturate Scree,Urine Neg (NEGATIVE); Benzodiazephine Screen, Urine Neg (NEGATIVE); Cannabinoid Screen, Urine Neg (NEGATIVE); Cocaine Screen, Urine Neg (NEGATIVE); Phencyclidine Screen, Urine Neg (NEGATIVE)
--- NOTE | 2024-06-02 12:25 | DVHPN2 ---
Progress Note Date Seen: Jun 02, 2024 Medical Necessity Reason Pt with a Central, PICC or Fol: No Subjective Patient reports: No new complaints Review of Systems: HEENT:Normal, CVS:Normal, RESPIRATORY:Normal, GI:Normal, :Normal, MSK:Normal, NEURO:Normal Objective vital signs Vital Sign Date Time Temp Pulse Resp B/P (MAP) Pulse Ox O2 Delivery O2 Flow Rate FiO2 06/02/24 12:18 91 15 120/58 06/02/24 10:31 98 06/02/24 08:00 Room Air* 0 21 06/02/24 08:00 97.7 97.7 Total Intake and Output 06/01/24 06/01/24 06/02/24 15:00 23:00 07:00 Intake Total 400 ml Balance 400 ml medications Current Medications Medications Dose Ordered Sig/Mary Carmen Route Start Time Stop Time Status Last Admin Dose Admin Lorazepam 0.5 mg Q6HP PRN PO 06/01/24 23:15 Ondansetron HCl 4 mg Q4HP PRN IV 06/01/24 23:15 06/02/24 08:23 4 MG Morphine Sulfate 2 mg Q4HPRN PRN IV 06/01/24 23:15 06/02/24 12:18 2 MG Enoxaparin Sodium 40 mg DAILY SC 06/02/24 10:00 06/02/24 10:23 40 MG Ergocalciferol 50,000 unit Q7D PO 06/02/24 00:45 06/02/24 01:31 50,000 UNIT Quetiapine Fumarate 100 mg HS PO 06/02/24 22:00 Sertraline HCl 50 mg DAILY PO 06/02/24 10:00 06/02/24 10:23 50 MG Levetiracetam 500 mg BID PO 06/02/24 10:00 06/02/24 10:23 500 MG Diphenhydramine HCl 25 mg Q4HP PRN IV 06/02/24 02:00 Sodium Chloride 1,000 ml @ 100 mls/hr Q10H IV 06/02/24 02:00 06/02/24 12:05 100 MLS/HR Metronidazole 100 ml @ 100 mls/hr Q8HR IV 06/02/24 06:00 Ceftriaxone Sodium 50 ml @ 100 mls/hr DAILY@09 IV 06/02/24 09:00 06/02/24 09:23 100 MLS/HR Examination: GENERAL:Normal, HEENT:Normal, NECK:Normal, LUNGS:Normal, CVS:Normal, ABDOMEN:Normal, MSK:Normal, SKIN:Normal, NEURO:Normal, :Normal laboratory and microbiology Laboratory Tests 06/02/24 05:30 Test 06/02/24 05:30 Range/Units Serum Glucose 106 74-106 mg/dL Problem List/Assessment/Plan Problem List/Assessment/Plan #1 breakthrough seizure: cont meds, neuro eval #2 abd pain ? acute gastro: ppi, advance diet #3 obesity #4 anxiety #5 h/o leukemia Plan discussed with: Patient My Orders My Orders Orders - JAMES AMEZCUA MD Procedure Category Date Status Time Regular Diet DIET 06/02/24 Transmitted Lunch * Neurology Consult CONS 06/02/24 Transmitted 12:21 Pantoprazole PHA 06/02/24 Transmitted (Protonix) 12:30 Pantoprazole PHA 06/03/24 Transmitted (Protonix) 10:00 Potassium Er Tablet PHA 06/02/24 Transmitted (Klor-Con Tablet) 12:30 Basic Metabolic Panel LAB 06/03/24 Verified 06:00 Date of Service: Jun 02, 2024 Billing Provider: JAMES AMEZCUA MD Common Visit Codes: [id number] INP/OBS CARE(HIGH) JAMES AMEZCUA MD Jun 02, 2024 12:25
[2024-06-02] MEDS: diphenhdrAMINE HCL 50 MG/1 ML VL IV PRN (12:43)
--- NOTE | 2024-06-02 16:06 | DVHSR ---
APPROVED REPORT EXAM: Two-dimensional and M-mode echocardiogram with Doppler and color Doppler. Blood Pressure: 96/52 mmHg INDICATION Dyspnea seizures RISK FACTORS Obesity: Height: 5'3, Weight: 205 DIMENSIONS LVDd4.6 (3.8-5.7cm)LA (2D)3.5 (1.9-4.0cm)Aortic Root3.1 (2.0-3.7cm) LVDs3.3 (2.5-4.0cm)LA (MM) (1.9-4.0cm)Aortic Cusp Exc1.8 (1.5-2.0cm) EF (%) 55.0 (55-70%)Rt. Atrium2.8 (1.9-4.0cm)Asc. Aorta2.4 cm IVSd0.7 (0.7-1.1cm)RV (D) (1.8-2.4cm) PWd0.8 (0.7-1.1cm) Mitral Valve MitralMitral Stenosis E wave0.81m/sMV Mean GR.mmHg A wave0.53m/sMV Peak GR.46mmHg E/A ratio1.52D MVAcm2 DECEL [id number] 1/2 Timems Aortic Valve Aortic ValveAortic Stenosis V10.79m/Windy Mean GR.2mmHg V20.95m/Windy Peak GR.4mmHg LVOT Diameter2.0 (1.8-2.4cm)Doppler AVA2.61cm2 Pulmonic Valve V20.70m/s Tricuspid Valve TR Velocity2.10m/s [id number] Conclusion LVEF 50-55%, normal function rv function normal valves grossly normal
[2024-06-02] MEDS: PANTOPRAZOLE 40 MG/10 ML VIAL INJ IV ONE (16:57)
[2024-06-02 17:00] VITALS: BP 108/52; PULSE 90; RESP 19; TEMP 97.5; O2SAT 97
[2024-06-02] MEDS: POTASSIUM CHL 20 Meq TABLET PO ONE (17:07)
[2024-06-02 17:29] VITALS: BP 122/80; PULSE 90; RESP 20
[2024-06-02] MEDS ORDERED: QUEtiapine FUMARATE 100 MG TAB PO SCH (22:00)
--- NOTE | 2024-06-03 09:54 | DVHDS ---
DATE OF DISCHARGE: 06/02/2024 HISTORY OF PRESENT ILLNESS: The patient is a 33-year-old lady who was admitted with history of breakthrough seizure and has history of seizure disorder, PTSD, previous leukemia. She also complained of abdominal pain. HOSPITAL COURSE: The patient had a CT of abdomen and pelvis that showed moderate bowel wall thickening of the terminal ileum. The patient had a gallbladder ultrasound that was unremarkable. The patient had an echocardiogram done that showed ejection fraction of 50%-55%. The patient was to see Neurology. The patient left against medical advice on 06/02/2024. FINAL DIAGNOSES: * Breakthrough seizures. * Abdominal pain, questionable acute gastroenteritis. * Obesity. * Anxiety. * History of leukemia. * Noncompliance. MD CHRIS Pyle/ALLY TID: [id number] RECEIPT: [id number]
[2024-06-03] MEDS ORDERED: PANTOPRAZOLE 40 MG/10 ML VIAL INJ IV SCH (10:00)
== END 2024-06-02 18:04 | disposition left against medical advice (07) | DRG 101 ==
LOC: ER 19:55 → OVERFLOW 23:02 → TELE-EAST 06-02 16:30
PROVIDERS: ADMIT Internal Medicine; ATTEND Internal Medicine
DX: G40.909 Epilepsy, unspecified, not intractable, without status epilepticus (principal); E66.9 Obesity, unspecified; Z68.35 Body mass index [BMI] 35.0-35.9, adult; K52.9 Noninfective gastroenteritis and colitis, unspecified; F41.9 Anxiety disorder, unspecified; F43.10 Post-traumatic stress disorder, unspecified; E55.9 Vitamin D deficiency, unspecified; Z53.29 Procedure and treatment not carried out because of patient's decision for other reasons; Z92.3 Personal history of irradiation; Z92.21 Personal history of antineoplastic chemotherapy; Z91.199 Patient's noncompliance with other medical treatment and regimen due to unspecified reason; Z85.6 Personal history of leukemia; Z88.8 Allergy status to other drugs, medicaments and biological substances
CPT/HCPCS: 36415; 74176; 76705; 80048; 80053; 80061; 80307; 81001; 81025; 82306; 82550; 82607; 83036; 83605; 83690; 83735; 84100; 84439; 84443; 84480; 84702; 85025; 85610; 85730; 93306; 96365; 96375; G0378; J2405; J2470; J3490

== ENCOUNTER 2024-07-24 22:14 | Emergency (ER) | payer OTHER, MEDICAID ==
[~2024-07-24] VITALS: Ht 162.6 cm; Wt 93.0 kg
[2024-07-24 23:00] VITALS: TEMP 97.9
--- NOTE | 2024-07-24 23:16 | ED.PDOC ---
GI ASSESSMENT HPI Comments 33-year-old female who came to ER for abdominal pain. Patient states for the past 3 days, she has been having intermittent episodes of right upper quadrant abdominal pain/epigastric pain, associated with bouts of nausea, vomiting, and loose nonbloody diarrhea. States she could not keep anything in. Noted also to have dysuria and burning in urination. Patient does have history of seizures, states she is unable to keep her seizure medications in due to the vomiting. This morning, patient had a witnessed seizure episode lasting a few minutes. Last seizure episode was over 2 years ago Chief Complaint: Abdominal pain Time Seen by MD: 23:15 Primary Care Provider: PATRICIA Reviewed Notes: Nurses Notes Allergies: Coded Allergies: Acetaminophen (Verified Allergy, Unknown, 12/16/23) Ibuprofen (Verified Allergy, Unknown, 12/16/23) Uncoded Allergies: TORODOL (Allergy, Unknown, 12/16/23) Home Meds Active Scripts Famotidine (PEPCID TABLET) 20 Mg Tb, 1 TAB PO BID PRN, #60 TAB 5 Refills Prov:JEREMY PORTILLO MD 07/25/24 Ondansetron HCl (Ondansetron Hydrochloride) 8 Mg Tab, 8 MG PO Q6HP PRN, #30 TAB Prov:JEREMY PORTILLO MD 07/25/24 Information Source: Patient Mode of Arrival: Ambulatory Timing: Days Duration: Intermittent Prehospital treatment: None Quality: Cramping Vomitus: Watery Stool: Loose, Watery Severity: Moderate Recent: None Recent Hx of: None Pain Location: Epigastric, RUQ Modifying Factors: Nothing Associated sign and symptoms: Nausea, Vomiting, Diarrhea, Abdominal Pain, Other (Seizure) Past Medical History PAST MEDICAL HISTORY: Cancer (Leukemia), Seizures Surgical History: Denies all surgeries 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: 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 all MATERIALS BRANCH CHIEF Hx Family History Family History: Reviewed,noncontributory to illness Social History Smoker: Non-Smoker Alcohol: Denies ETOH Use Drugs: Denies Drug Use Lives In: Home Constitutional: denies: chills, diaphoresis, fatigue, fever, malaise, sweats, weakness, others EENTM: denies: blurred vision, double vision, ear bleeding, ear discharge, ear drainage, ear pain, ear ringing, eye pain, eye redness, hearing loss, mouth pain, mouth swelling, nasal discharge, nose bleeding, nose congestion, nose pain, photophobia, tearing, throat pain, throat swelling, voice changes, others Respiratory: denies: cough, hemoptysis, orthopnea, SOB at rest, shortness of breath, SOB with excertion, stridor, wheezing, others Cardiovascular: denies: chest pain, dizzy spells, diaphoresis, Dyspnea on exertion, edema, irregular heart beat, left arm pain, lightheadedness, palpitations, PND, syncope, others Gastrointestinal: reports: abdominal pain, diarrhea, nausea, vomiting; denies: abdomen distended, blood streaked bowels, constipated, dysphagia, difficulty swallowing, hematemesis, melena, poor appetite, poor fluid intake, rectal bleeding, rectal pain, others Genitourinary: reports: burning, dysuria; denies: abnormal vagina bleeding, dyspareunia, flank pain, frequency, hematuria, incontinence, pain, , vagina discharge, urgency, others Neurological: reports: seizure; denies: dizziness, fainting, headache, left sided numbness, left sided weakness, numbness, paresthesia, pre-existing deficit, right sided numbness, right sided weakness, speech problems, tingling, tremors, weakness, others Musculoskeletal: denies: back pain, gout, joint pain, joint swelling, muscle pain, muscle stiffness, neck pain, others Integumetry: denies: bruises, change in color, change in hair/nails, dryness, laceration, lesions, lumps, rash, wounds, others Allergic/Immunocompromised: denies: Difficulty Healing, Frequent Infections, Hives, Itching, others Hematologic/Lymphatic: denies: anemia, blood clots, easy bleeding, easy bruising, swollen glands, others Endocrine: denies: excessive hunger, excessive sweating, excessive thirst, excessive urination, flushing, intolerance to cold, intolerance to heat, unexplained weight gain, unexplained weight loss, others Psychiatric: denies: anxiety, bipolar disorder, depression, hopeless, panic disorder, schizophrenia, sleepless, suicidal, others Physical Exam General Appearance: No Apparent Distress, Normal HEENT: Normal ENT Inspection, Pharynx Normal, TMs Normal Neck: Full Range of Motion, Non-Tender, Normal, Normal Inspection Respiratory: Chest Non-Tender, Lungs Clear, No Accessory Muscle Use, No Respiratory Distress, Normal Breath Sounds Cardiovascular: No Edema, No JVD, No Murmur, No Gallop, Normal Peripheral Pulses, Regular Rate/Rhythm Breast Exam: Deferred Gastrointestinal: Epigastric, No Organomegaly, No Pulsatile Mass, Normal Bowel Sounds, RUQ, Soft, Tenderness Genitalia: Deferred Pelvic: Deferred Rectal: Deferred Extremities: No calf tenderness, Normal capillary refill, Normal inspection, Normal range of motion, Non-tender, No pedal edema Musculoskeletal : Apperance: Normal Neurologic: Alert, cardiovascular radiologic technologist II-XII nml as Tested, No Motor Deficits, Normal Affect, Normal Mood, No Sensory Deficits Cerebellar Function: Normal Reflexes: Normal Skin: Dry, Normal Color, Warm Lymphatic: No Adenopathy Was a procedure done? Was a procedure done?: No GI differential Dx Differential Diagnosis: Diverticular disease, Gastritis/PUD, Gastroenteritis, UTI, Urolithiasis, Dehydration, Electrolyte Imbalance, Food Poisoning X-Ray, Labs, Meds, VS Vital Signs Date Time Temp Pulse Resp B/P (MAP) Pulse Ox O2 Delivery O2 Flow Rate FiO2 07/25/24 02:36 82 16 125/62 07/25/24 01:55 74 16 97/44 07/25/24 01:55 82 98 Room Air* 0 21 07/25/24 00:48 66 12 120/71 07/25/24 00:18 75 19 121/60 07/24/24 23:00 97.9 106 18 107/64 (78) 96 97.9 Lab Test 07/24/24 23:03 07/23/24 23:50 Range/Units Urine Color Colorless Yellow Urine Clarity Clear Clear Urine pH 6.0 5.0-9.0 Urine Specific Stuart 1.008 1.001-1.035 Urine Protein Negative Negative Urine Ketones Negative Negative Urine Blood 2+ H Negative /uL Urine Nitrite Negative Negative Urine Bilirubin Negative Negative Urine Urobilinogen Normal Negative mg/dL Urine Leukocyte Esterase Negative Negative /uL Urine RBC 1 0 - 4 /hpf Urine Microscopic WBC 1 0-5 /HPF Urine Squamous Epithelial Cells Mod <5 /hpf Urine Bacteria None seen None Seen /hpf Urine Glucose Normal Normal mg/dL Urine Test Negative Negative White Blood Count 6.6 4.4-10.8 10^3/uL Red Blood Count 4.59 4.0-5.20 10^6/uL Hemoglobin 12.9 12.2-16.2 g/dL Hematocrit 38.3 36.0-46.0 % Mean Corpuscular Volume 83.5 80.0-100.0 fL Mean Corpuscular Hemoglobin 28.2 28.0-32.0 pg Mean Corpuscular Hemoglobin Concent 33.8 32.0-36.0 g/dL Red Cell Distribution Width 14.6 H 11.8-14.3 % Platelet Count 213 140-450 10^3/uL Mean Platelet Volume 8.9 6.9-10.8 fL Neutrophils (%) (Auto) 60.6 37.0-80.0 % Lymphocytes (%) (Auto) 30.4 10.0-50.0 % Monocytes (%) (Auto) 7.6 0.0-12.0 % Eosinophils (%) (Auto) 0.9 0.0-7.0 % Basophils (%) (Auto) 0.5 0.0-2.0 % Neutrophils # (Auto) 4.0 1.6-8.6 10 ^3/uL Lymphocytes # (Auto) 2.0 0.4-5.4 10 ^3/uL Monocytes # (Auto) 0.5 0-1.3 10 ^3/uL Eosinophils # (Auto) 0.1 0-0.8 10 ^3/uL Basophils # (Auto) 0 0-0.2 10 ^3/uL Nucleated Red Blood Cells 0.0 % Sodium Level 140 136-145 mmol/L Potassium Level 3.5 3.5-5.1 mmol/L Chloride Level 106 98-107 mmol/L Carbon Dioxide Level 24 20-31 mmol/L Anion Gap 10 5-15 Blood Urea Nitrogen 9 9-23 mg/dL Creatinine 0.70 0.550-1.02 mg/dL Glomerular Filtration Rate Calc 118 >90 mL/min BUN/Creatinine Ratio 12.9 10.0-20.0 Serum Glucose 99 74-106 mg/dL Calcium Level 8.8 8.7-10.4 mg/dL Total Bilirubin 0.2 0.2-1.0 mg/dL Aspartate Amino Transferase (AST) 12 <34 U/L Alanine Aminotransferase (ALT) < 9 7-40 U/L Alkaline Phosphatase 97 46-116 U/L Total Protein 6.8 5.7-8.2 g/dL Albumin 4.3 3.2-4.8 g/dL Lipase 32 12-53 U/L Current Medications Medications (Trade) Dose Ordered Sig/Mary Carmen Route Start Time Stop Time Status Last Admin Ondansetron HCl (Zofran) 4 mg ONCE ONCE IV 07/24/24 23:15 07/24/24 23:16 DC 07/25/24 00:09 Sodium Chloride 1,000 ml @ 1,000 mls/hr Q1H ONCE IVB 07/24/24 23:15 07/25/24 00:14 DC 07/25/24 00:09 Morphine Sulfate 4 mg ONCE ONCE IV 07/24/24 23:15 07/24/24 23:16 DC 07/25/24 00:18 Levetiracetam 100 ml @ 400 mls/hr ONCE ONCE IV 07/24/24 23:15 07/24/24 23:29 DC 07/25/24 00:09 Diphenhydramine HCl (Benadryl Injection) 50 mg ONCE ONCE IV 07/25/24 00:30 07/25/24 00:31 DC 07/25/24 00:31 Hydromorphone HCl (Dilaudid Injection) 1 mg ONCE ONCE IV 07/25/24 01:45 07/25/24 01:46 DC 07/25/24 01:55 Famotidine (Pepcid Injection) 20 mg ONCE ONCE IV 07/25/24 01:45 07/25/24 01:46 DC 07/25/24 01:51 ABDOMINAL ULTRASOUND CLINICAL HISTORY: RUQ pain TECHNIQUE: Multiple grayscale and color Doppler ultrasound images were obtained of the abdomen. WID: COMPARISON: US GALLBLADDER on DOS: 06/01/24, FINDINGS: Liver and Biliary System: Normal echogenicity, normal size measuring 14.4 cm. No focal hepatic observations. No intrahepatic bile duct dilatation. The common duct measures 0.4 cm at the kady hepatis. The gallbladder normal caliber without wall thickening. Pancreas: Visualized portions are unremarkable. Kidneys: The right kidney is 9.8 cm . No hydronephrosis, increased echogenicity, shadowing stone, or focal lesion. IMPRESSION: Normal right upper quadrant ultrasound. Time of 1ST Reevaluation: 23:07 Reevaluation 1ST: Unchanged Patient Education/Counseling: Diagnosis, Treatment Family Education/Counseling: No Family Present Departure 1 Departure Time of Disposition: 01:00 Impression: Primary Impression: Vomiting Additional Impressions: Upper abdominal pain Seizure disorder Disposition: HOME / SELF CARE / HOMELESS Condition: Stable e-Prescriptions Famotidine (PEPCID TABLET) 20 Mg Tb 1 TAB PO BID PRN, #60 TAB 5 Refills Prov: JEREMY PORTILLO MD 07/25/24 Ondansetron HCl (Ondansetron Hydrochloride) 8 Mg Tab 8 MG PO Q6HP PRN, #30 TAB Prov: JEREMY PORTILLO MD 07/25/24 Discharged With: Self Critical Care Note Critical Care Time?: No Stability Stability form required: No Heart Score Heart Score: Heart Score Response (Comments) Value History N/A 0 EKG N/A 0 Age N/A 0 Risk Factors N/A 0 Troponin N/A 0 Total 0 I personally scribed for JEREMY PORTILLO MD ([email or web address]) on 07/24/24 at 23:15. Electronically submitted by Candelario Wise ([employer]). I personally scribed for JEREMY PORTILLO MD ([email or web address]) on 07/25/24 at 01:39. Electronically submitted by Candelario Wise ([facility] JEREMY PORTILLO MD Jul 24, 2024 23:15
[2024-07-25] LABS: Basophils # (auto) 0 10 ^3/uL (0-0.2); Basophils % (auto) 0.5 % (0.0-2.0); Eosinophils # (auto) 0.1 10 ^3/uL (0-0.8); Eosinophils % (auto) 0.9 % (0.0-7.0); Hematocrit 38.3 % (36.0-46.0); Hemoglobin 12.9 g/dL (12.2-16.2); Lymphocytes % (auto) 30.4 % (10.0-50.0); Mean Corpuscular Hemoglobin 28.2 pg (28.0-32.0); Mean Corpuscular Hgb Conc. 33.8 g/dL (32.0-36.0); Mean Corpuscular Volume 83.5 fL (80.0-100.0); Monocytes # (auto) 0.5 10 ^3/uL (0-1.3); Monocytes % (auto) 7.6 % (0.0-12.0); Neutrophils % (auto) 60.6 % (37.0-80.0); Platelet Count (auto) 213 10^3/uL (140-450); Red Blood Cells 4.59 10^6/uL (4.0-5.20); Red Cell Distribution Width 14.6 % (11.8-14.3); White Blood Cell 6.6 10^3/uL (4.4-10.8)
[2024-07-25] MEDS: levETIRAcetam 1000 mg/100ml 100 ML IV ONE (00:09)
[2024-07-25] MEDS: SODIUM CHLORIDE 0.9% 1,000 ML IVB ONE (00:09)
[2024-07-25] MEDS: ONDANSETRON HCL 4 MG/2 ML VIAL IV ONE (00:09)
[2024-07-25 00:18] LABS: Albumin 4.3 g/dL (3.2-4.8); Alkaline Phosphatase 97 U/L (46-116); Anion Gap 10 (5-15); Aspartate Aminotransferase 12 U/L (<34); BUN/Creatinine Ratio 12.9 (10.0-20.0); Calcium 8.8 mg/dL (8.7-10.4); Carbon Dioxide 24 mmol/L (20-31); Chloride 106 mmol/L (98-107); Glucose 99 mg/dL (74-106); Lipase 32 U/L (12-53); Sodium 140 mmol/L (136-145); Total Protein 6.8 g/dL (5.7-8.2)
[2024-07-25] MEDS: MORPHINE SULFATE 4 MG/ML SYR/VIAL IV ONE (00:18)
[2024-07-25 00:22] LABS: Alanine Aminotransferase < 9 U/L (7-40); Bilirubin, Total 0.2 mg/dL (0.2-1.0); Blood Urea Nitrogen 9 mg/dL (9-23); Potassium 3.5 mmol/L (3.5-5.1)
[2024-07-25] MEDS: diphenhdrAMINE HCL 50 MG/1 ML VL IV ONE (00:31)
[2024-07-25 01:23] LABS: Urine Bacteria None Seen /hpf (None Seen)
[2024-07-25 01:29] LABS: Urine Blood 2+ /uL (Negative); Urine Clarity Clear (Clear); Urine Color Colorless (Yellow); Urine Protein, UAD Negative (Negative); Urine Specific Gravity 1.008 (1.001-1.035); Urine Squamous Epithelial Cell MOD /hpf (<5); Urine Urobilinogen Normal (Negative); Urine WBC 1 /HPF (0-5)
--- NOTE | 2024-07-25 01:33 | DVH ---
ABDOMINAL ULTRASOUND CLINICAL HISTORY: RUQ pain TECHNIQUE: Multiple grayscale and color Doppler ultrasound images were obtained of the abdomen. WID: COMPARISON: US GALLBLADDER on DOS: 06/01/24, FINDINGS: Liver and Biliary System: Normal echogenicity, normal size measuring 14.4 cm. No focal hepatic obse rvations. No intrahepatic bile duct dilatation. The common duct measures 0.4 cm at the kady hepati s. The gallbladder normal caliber without wall thickening. Pancreas: Visualized portions are unremarkable. Kidneys: The right kidney is 9.8 cm . No hydronephrosis, increased echogenicity, shadowing stone, o r focal lesion. IMPRESSION: Normal right upper quadrant ultrasound.
[2024-07-25] MEDS ORDERED: FAMO20TA10 PO (01:42)
[2024-07-25] MEDS ORDERED: ONDA-180 PO (01:42)
[2024-07-25] MEDS: FAMOTIDINE (10MG/ML) 2ML VL IV ONE (01:51)
[2024-07-25 01:55] VITALS: PULSE 82; O2SAT 98
[2024-07-25] MEDS: HYDROmorphone HCL 2 MG/ML VL/or syr IV ONE (01:55)
[2024-07-25 02:36] VITALS: BP 125/62; PULSE 82; RESP 16
== END 2024-07-25 02:45 | disposition home or self-care (01) ==
LOC: ER 22:14
DX: G40.909 Epilepsy, unspecified, not intractable, without status epilepticus (principal); R10.13 Epigastric pain; R10.11 Right upper quadrant pain; R11.2 Nausea with vomiting, unspecified; R19.7 Diarrhea, unspecified; R30.0 Dysuria; Z79.899 Other long term (current) drug therapy; Z88.6 Allergy status to analgesic agent
CPT/HCPCS: 36415; 76705; 80053; 81001; 81025; 83690; 85025; 96361; 96374; 96375; 99285; J1171; J1200; J1953; J2270; J2405; J3490; J7030; 96365

== ENCOUNTER 2024-11-07 22:07 | Emergency (ER) | payer OTHER, MEDICAID ==
[~2024-11-07 22:07] MED LIST: FAMO20TA10 PO; ONDA-180 PO
--- NOTE | 2024-11-07 22:31 | ED.PDOC ---
HPI (NEURO) HPI Comments 34 year old female who came to ER due to seizures. Patient has a history of seizures, takes Keppra and lamotrigine for it with good compliance. Patient currently being treated for a urinary/ kidney infection with Keflex. States patient has been having abdominal pain, back pain, dysuria, nausea and vomiting. States she has been unable to take her medications for seizure due to the vomiting. States she has a seizure episode 2 days ago, and another 1 today REVIEW OF SYSTEMS: General: No fever, no chills, or fatigue HEENT: No sore throat, no earache, no congestion, no neck pain. Cardiac: No chest pain. No palpitations. Lungs: No shortness of breath, no cough. GI: No nausea, no vomiting, no diarrhea, no constipation, no abdominal pain : No dysuria, frequency, or urgency. No hematuria. Musculoskeletal: No joint pain , no joint swelling, no extremity edema. Skin: No rash, no itching. Neuro: No headache, no dizziness, no weakness, (+) seizure EXAM: General: Awake, alert and oriented. No acute distress. Skin: Skin in warm, dry and intact. Appropriate color for ethnicity. HEENT: The head is normocephalic and atraumatic. Conjunctivae are clear without exudates or hemorrhage. Sclera is non-icteric. EOM are intact. No signs of nystagmus. Eyelids are normal in appearance without swelling or lesions. Oral mucosa is pink and moist Neck: The neck is supple with normal range of motion. No JVD. Cardiac: Heart rate and rhythm are normal. No murmurs, gallops, or rubs are auscultated. Respiratory: No signs of respiratory distress. Lung sounds are clear in all lobes bilaterally without rales, rhonchi, or wheezes. Abdominal: Abdomen is soft, non-tender without distention. Bowel sounds are present and normoactive in all four quadrants. Extremities: Upper and lower extremities are atraumatic in appearance without deformity or edema. Neurological: The patient is awake, alert and oriented to person, place, and time with normal speech. Speech is clear. There is no facial asymmetry. Psychiatric: Appropriate mood and affect. Good judgement and insight Chief Complaint: Seizure Time Seen by MD: 22:31 Primary Care Provider: Richard lowery Reviewed Notes: Nurses Notes Information Source: Patient Mode of Arrival: Ambulatory Severity: Moderate Dizziness/Weakness Severity: Unable to do activities Headache Severity: Moderate Timing: Hours Duration: Minutes Past Medical History PAST MEDICAL HISTORY: Cancer (Lymphoma), Seizures Surgical History: Denies all surgeries BOX TOE CUTTER History: Denies all BOX TOE CUTTER Hx Family History Family History: Reviewed,noncontributory to illness Social History Smoker: Non-Smoker Alcohol: Denies ETOH Use Drugs: Denies Drug Use Lives In: Home Was a procedure done? Was a procedure done?: No Differential Diagnosis (SZ) Seizure: Psychogenic Seizure, Idiopathic, Encephalopathy, Epilepsy-Break Through, Epilepsy-Status X-Ray, Labs, Meds, VS Vital Signs Date Time Temp Pulse Resp B/P (MAP) Pulse Ox O2 Delivery O2 Flow Rate FiO2 11/08/24 04:00 73 15 115/42 (66) 98 11/08/24 02:00 76 13 119/82 (94) 97 11/08/24 00:16 87 20 113/66 (82) 99 11/07/24 23:00 97.9 77 12 147/127 (134) 98 97.9 11/07/24 23:00 Room Air* 0 21 11/07/24 22:08 98.0 83 20 103/86 100 98.0 Lab Test 11/07/24 23:00 Range/Units White Blood Count 7.8 4.4-10.8 10^3/uL Red Blood Count 4.38 4.0-5.20 10^6/uL Hemoglobin 12.0 L 12.2-16.2 g/dL Hematocrit 35.7 L 36.0-46.0 % Mean Corpuscular Volume 81.5 80.0-100.0 fL Mean Corpuscular Hemoglobin 27.5 L 28.0-32.0 pg Mean Corpuscular Hemoglobin Concent 33.7 32.0-36.0 g/dL Red Cell Distribution Width 15.2 H 11.8-14.3 % Platelet Count 219 140-450 10^3/uL Mean Platelet Volume 9.5 6.9-10.8 fL Neutrophils (%) (Auto) 65.5 37.0-80.0 % Lymphocytes (%) (Auto) 26.1 10.0-50.0 % Monocytes (%) (Auto) 5.9 0.0-12.0 % Eosinophils (%) (Auto) 2.1 0.0-7.0 % Basophils (%) (Auto) 0.4 0.0-2.0 % Neutrophils # (Auto) 5.1 1.6-8.6 10 ^3/uL Lymphocytes # (Auto) 2.0 0.4-5.4 10 ^3/uL Monocytes # (Auto) 0.5 0-1.3 10 ^3/uL Eosinophils # (Auto) 0.2 0-0.8 10 ^3/uL Basophils # (Auto) 0 0-0.2 10 ^3/uL Nucleated Red Blood Cells 0.1 % Sodium Level 138 136-145 mmol/L Potassium Level 3.6 3.5-5.1 mmol/L Chloride Level 107 98-107 mmol/L Carbon Dioxide Level 23 20-31 mmol/L Anion Gap 8 5-15 Blood Urea Nitrogen 5 L 9-23 mg/dL Creatinine 0.71 0.550-1.02 mg/dL Glomerular Filtration Rate Calc 115 >90 mL/min BUN/Creatinine Ratio 7.0 L 10.0-20.0 Serum Glucose 94 74-106 mg/dL Calcium Level 8.8 8.7-10.4 mg/dL Total Bilirubin 0.3 0.2-1.0 mg/dL Aspartate Amino Transferase (AST) 14 13-40 U/L Alanine Aminotransferase (ALT) < 9 7-40 U/L Alkaline Phosphatase 94 46-116 U/L Total Protein 7.1 5.7-8.2 g/dL Albumin 4.2 3.2-4.8 g/dL Levetiracetam Level Pending Current Medications Medications (Trade) Dose Ordered Sig/Mary Carmen Route Start Time Stop Time Status Last Admin Sodium Chloride 1,000 ml @ 1,000 mls/hr Q1H ONCE IV 11/07/24 22:15 11/07/24 23:14 DC 11/08/24 00:00 Levetiracetam 100 ml @ 400 mls/hr ONCE ONCE IV 11/07/24 22:15 11/07/24 22:29 DC 11/07/24 23:04 Ondansetron HCl (Zofran) 4 mg ONCE ONCE IV 11/07/24 22:15 11/07/24 22:23 DC 11/07/24 23:04 Phenazopyridine HCl (Pyridium Tablet) 200 mg ONCE ONCE PO 11/08/24 00:15 11/08/24 00:16 DC 11/08/24 00:12 Lorazepam (Ativan Inj) 1 mg ONCE ONCE IV 11/08/24 00:35 11/08/24 01:08 DC 11/08/24 00:37 Metoclopramide HCl (Reglan Injection) 5 mg ONCE ONCE IV 11/08/24 02:00 11/08/24 02:01 DC 11/08/24 02:04 Diphenhydramine HCl (Benadryl Capsule) 25 mg ONCE ONCE PO 11/08/24 02:15 11/08/24 02:16 DC 11/08/24 03:10 Famotidine (Pepcid Tablet) 20 mg ONCE ONCE PO 11/08/24 02:15 11/08/24 02:16 DC 11/08/24 03:10 Time of 1ST Reevaluation: 22:26 Reevaluation 1ST: Unchanged Patient Education/Counseling: Need For Follow Up Family Education/Counseling: No Family Present Departure 1 Departure Time of Disposition: 03:07 Impression: Primary Impression: Witnessed seizure-like activity Additional Impressions: Right flank pain Nausea and vomiting Disposition: 02 SHORT TERM HOSPITAL Condition: Stable Comments 34-year-old female presented with seizures, nausea and vomiting Stated was not able to take her Keppra and has had 2 seizures in the past 3 days During the ED observation patient had 2 witnessed episodes of seizure-like activity. Tonic-clonic like seizure activity associated with urinary incontinence with no postictal period Patient also reported itching after receiving 2.5 mg of Reglan IV. No sign of urticaria, tongue swelling, respiratory distress, hypoxia or wheezing on exam. Benadryl and famotidine administered. Discussed with physician from [facility]. Patient has diagnosis of dissociated seizures. No record of prescription of Keppra Recently seen at [facility] and however 3 days ago had negative UA Patient is stable and accepted for transfer to [facility] facility. [facility] authorization number [id number] Extensive evaluation was performed in attempt to identify or rule out: (See differential diagnosis section) The following tests were ordered, and results were reviewed by me and discussed with patient: (See diagnostic results section) Discussion of management or test interpretation with external physician/other qualified health rn critical care: Yes Decision regarding hospitalization or escalation of hospital level of care: Risk and benefits of admission for further treatment of patient's condition was considered. Due to patient's current clinical condition, high risk of decline and poor outcome if discharged and need for further inpatient management and monitoring, patient will be admitted to the hospital. Discussed with patient. Critical Care Note Critical Care Time?: Yes (35 min-critical care time only) Critical care comment: Seizure Stability Stability form required: No Heart Score Heart Score: Heart Score Response (Comments) Value History N/A 0 EKG N/A 0 Age N/A 0 Risk Factors N/A 0 Troponin N/A 0 Total 0 I personally scribed for DELROY CHRISTOPHER MD ([email or web address]) on 11/07/24 at 22:31. Electronically submitted by Candelario Wise ([address]). I personally scribed for DELROY CHRISTOPHER MD ([email or web address]) on 11/07/24 at 23:47. Electronically submitted by Candelario Wise ([address]). DELROY CHRISTOPHER MD Nov 07, 2024 22:31
[2024-11-07] MEDS: ONDANSETRON HCL 4 MG/2 ML VIAL IV ONE (23:04)
[2024-11-07] MEDS: levETIRAcetam 1000 mg/100ml 100 ML IV ONE (23:04)
[2024-11-07 23:34] LABS: Albumin 4.2 g/dL (3.2-4.8); Alkaline Phosphatase 94 U/L (46-116); Anion Gap 8 (5-15); BUN/Creatinine Ratio 7.0 (10.0-20.0); Calcium 8.8 mg/dL (8.7-10.4); Carbon Dioxide 23 mmol/L (20-31); Chloride 107 mmol/L (98-107); Glucose 94 mg/dL (74-106); Potassium 3.6 mmol/L (3.5-5.1); Sodium 138 mmol/L (136-145); Total Protein 7.1 g/dL (5.7-8.2)
[2024-11-07 23:45] LABS: Hematocrit 35.7 % (36.0-46.0); Hemoglobin 12.0 g/dL (12.2-16.2); Mean Corpuscular Hemoglobin 27.5 pg (28.0-32.0); Mean Corpuscular Volume 81.5 fL (80.0-100.0); Nucleated Red Blood Cells % 0.1 %
[2024-11-07 23:51] LABS: Alanine Aminotransferase < 9 U/L (7-40); Bilirubin, Total 0.3 mg/dL (0.2-1.0); Blood Urea Nitrogen 5 mg/dL (9-23)
[2024-11-07] MEDS: levETIRAcetam 500 MG TAB PO ONE (23:59)
[2024-11-08] MEDS: ONDANSETRON HCL 4 MG/2 ML VIAL IM ONE
[2024-11-08] MEDS: SODIUM CHLORIDE 0.9% 1,000 ML IV ONE
[2024-11-08] MEDS: PHENAZOPYRIDINE HCL 100 MG TAB PO ONE (00:12)
[2024-11-08] MEDS: LORazepam 2MG/ML-1ML VIAL ONE (00:35)
[2024-11-08] MEDS: LORazepam 2MG/ML-1ML VIAL IV ONE (00:37)
--- NOTE | 2024-11-08 01:15 | DVH ---
EXAM: CT HEAD WITHOUT CONTRAST INDICATION: Recurrent seizure TECHNIQUE: CT of the head without intravenous contrast. Radiation Dose Information: CT Dose: CTDI volume is 63.38 mGy. Dose-length product is 1247.15 mGy*cm The dose indicators for CT are the volume Computed Tomography (CT) Dose Index (CTDIvol) and the Dose Length Product (DLP), and are measured in units of mGy and mGy-cm, respectively. These indicators are not patient dose, but values generated from the CT scanner acquisition factors. The report includes radiation exposure data for exposures received during this examination. COMPARISON: CT HEAD WITHOUT CONTRAST on DOS: 09/17/23 FINDINGS: There is no evidence of acute intracranial hemorrhage, extra-axial collection, mass effect, midline s hift, herniation or hydrocephalus. The ventricles, sulci and cisterns are age appropriate. The roblero-white differentiation is intact. The visualized paranasal sinuses and mastoid air cells are clear. The surrounding soft tissues and osseous structures are unremarkable. IMPRESSION: No acute intracranial abnormality.
[2024-11-08] MEDS: METOCLOPRAMIDE HCL 5MG/ml INJ 2ml VIAL IV ONE (02:04)
[2024-11-08] MEDS: FAMOTIDINE 20 MG TAB PO ONE (03:10)
[2024-11-08 06:33] VITALS: BP 103/51; PULSE 79; RESP 20; TEMP 98; O2SAT 96
== END 2024-11-08 07:01 | disposition short-term general hospital (02) ==
LOC: ER 22:07
DX: R56.9 Unspecified convulsions (principal); R10.9 Unspecified abdominal pain; R11.2 Nausea with vomiting, unspecified; Z85.72 Personal history of non-Hodgkin lymphomas
CPT/HCPCS: 36415; 70450; 80053; 82542; 85025; 96361; 96374; 96375; 99291; J1953; J2060; J2405; J2765; J7030